=== PATIENT | male | born 1940 | race Caucasian/White ===

== ENCOUNTER 2017-02-14 18:07 | Inpatient (IN) | payer MEDICARE, OTHER ==
[~2017-02-14] VITALS: Ht 182.9 cm; Wt 169.4 kg
[~2017-02-14 18:07] MED LIST changes: -ACET325S PR; -ALUM320SU PO; -AMOCLA500; -AQUAPHOR99 GM TOP; -Acidophilus La100 GM PO; -BISA10S PR; -CEPH250SUA PO; -Diabetic Tussi118 ML PO; -Eucerin Creme454 GM; -Fleet Enema132 ML PR; -HYDHCL25 PO; -Hair, Skin & N1 EACH PO; -INSU100I6 SC; -LACT5TL TOP; -LOPE2C PO; -LOPE2EL PO; -Lisinopril2.5 MG PO; -Milk Of Ma400 MG/5 M PO; -Novolog100 UNIT/2; -Novolog100 UNIT/2 SC; -OXYM.05NI; -PANT40 PO; -POTCHL10ER PO; -SACC250C PO; -TOUJEO SOL300 UNIT/1; -TOUJEO SOL300 UNIT/1 SC; -TRIPLE ANTIBIO1 EACH TOP; -Triamcinolone A15 G2 EXT; -[UNRECOGNIZED DRUG - OTHER] TOP
[2017-02-14] MEDS ORDERED: CEPH500 PO (18:32)
[2017-02-14] MEDS ORDERED: HYDR1TAB94 PO ×2 (18:35)
[2017-02-14] MEDS ORDERED: AMOCLA500 (18:38)
[2017-02-14 19:12] LABS: Albumin, Blood 2.6 g/dL (3.4-5.0); Albumin/Globulin Ratio 0.6 (0.8-1.8); Bilirubin, Total 0.3 mg/dL (0.1-1.0); Bun/Creatinine Ratio 19.9 (12.0-20.0); Calcium, Blood 7.8 mg/dL (8.5-10.1); Creatinine, Blood 5.69 mg/dL (0.60-1.20); Globulin, Blood 4.7 g/dL (2.2-4.0); Potassium, Blood 4.7 mmol/L (3.5-5.5); Total Protein, Blood 7.3 g/dL (6.4-8.2)
[2017-02-14 19:26] LABS: Hematocrit 29.5 % (37.0-53.0); Hemoglobin 9.5 g/dL (13.5-17.5); Mean Corpuscular HGB 31.5 pg (26.0-34.0); Mean Corpuscular HGB Conc 32.2 g/dL (31.5-36.5); Mean Corpuscular Volume 98 fL (80-100); NRBC ABSOLUTE 0.08 K/mm3 (0.00-0.02); NRBC Auto 0.9 /100 WBC (0.0-0.2); RDW Coefficient Variation 18.8 % (11.7-14.2); RDW Standard Deviation 66.3 fL (35.1-46.3); Red Blood Cell Count 3.02 M/mm3 (4.30-5.90); White Blood Cell Count 8.87 K/mm3 (4.00-11.30)
[2017-02-14 19:33] LABS: Platelet Count 31 K/mm3 (150-400)
[2017-02-14 20:18] LABS: BAND PERCENT MAN 17 % (0-8); BASOPHILS ABSOLUTE MAN 0.08 K/mm3 (0.00-0.23); BASOPHILS PERCENT MAN 1 % (0-2); EOSINOPHILS ABSOLUTE MAN 1.15 K/mm3 (0.00-0.68); EOSINOPHILS PERCENT MAN 13 % (0-6); LYMPHOCYTES ABSOLUTE MAN 2.39 K/mm3 (0.84-5.20); LYMPHOCYTES PERCENT MAN 27 % (21-46); METAMYELOCYTE ABSOLUTE MAN 0.26 K/mm3 (0.00-0.00); METAMYELOCYTE PERCENT MAN 3 % (0-0); MONOCYTES ABSOLUTE MAN 0.17 K/mm3 (0.16-1.47); MONOCYTES PERCENT MAN 2 % (4-13); MYELOCYTE ABSOLUTE MAN 0.62 K/mm3 (0.00-0.00); MYELOCYTE PERCENT MAN 7 % (0-0); NEUTROPHILS ABSOLUTE MAN 4.16 K/mm3 (1.96-9.15); SEG NEUTROPHILS PERCENT MAN 30 % (41-73); TOTAL CELLS COUNTED 100
[2017-02-15 00:42] LABS: Adenovirus F 40/41 Not Detected (NOT DETECT); Astrovirus Not Detected (NOT DETECT); Campylobacter Sp Not Detected (NOT DETECT); Cryptosporidium Not Detected (NOT DETECT); Cyclospora Cayetanensis Not Detected (NOT DETECT); E. Coli O157 Not Detected (NOT DETECT); Entamoeba Histolytica Not Detected (NOT DETECT); Enteroaggregative E. coli-EAEC Not Detected (NOT DETECT); Enteropathogenic E. coli-EPEC Not Detected (NOT DETECT); Enterotoxigenic E. coli-ETEC Not Detected (NOT DETECT); Giardia Lamblia Not Detected (NOT DETECT); Plesiomonas Shigelloides Not Detected (NOT DETECT); Rotavirus A Not Detected (NOT DETECT); Salmonella Sp Not Detected (NOT DETECT); Sapovirus Not Detected (NOT DETECT); Shiga Toxin-prod E. coli-STEC Not Detected (NOT DETECT); Shigella/Enteroin E. coli-EIEC Not Detected (NOT DETECT); Vibrio Cholerae Not Detected (NOT DETECT); Vibrio Sp Not Detected (NOT DETECT); Yersinia Enterocolitica Not Detected (NOT DETECT)
[2017-02-15 05:22] LABS: Hemoglobin 9.1 g/dL (13.5-17.5); Mean Corpuscular HGB 31.7 pg (26.0-34.0); Mean Corpuscular HGB Conc 33.7 g/dL (31.5-36.5); Mean Corpuscular Volume 94 fL (80-100); RDW Coefficient Variation 18.8 % (11.7-14.2); RDW Standard Deviation 63.9 fL (35.1-46.3); Red Blood Cell Count 2.87 M/mm3 (4.30-5.90); White Blood Cell Count 9.24 K/mm3 (4.00-11.30)
[2017-02-15 05:24] LABS: Platelet Count 23 K/mm3 (150-400)
[2017-02-15 05:34] LABS: Albumin, Blood 2.5 g/dL (3.4-5.0); Anion Gap 12 mmol/L (6-16); Blood Urea Nitrogen 121 mg/dL (8-24); Bun/Creatinine Ratio 20.5 (12.0-20.0); CO2, Blood 20 mmol/L (21-32); Calcium, Blood 7.2 mg/dL (8.5-10.1); Chloride, Blood 106 mmol/L (98-108); Creatinine, Blood 5.91 mg/dL (0.60-1.20); Glomerular Filtration Rate 10 (60-); Glucose, Blood 148 mg/dL (70-99); Magnesium, Blood 1.8 mg/dL (1.6-2.4); Phosphorus, Blood 7.9 mg/dL (2.5-4.9); Potassium, Blood 4.7 mmol/L (3.5-5.5); Sodium, Blood 138 mmol/L (136-145)
[2017-02-15 05:40] LABS: BAND PERCENT MAN 10 % (0-8); BASOPHILS ABSOLUTE MAN 0.18 K/mm3 (0.00-0.23); BASOPHILS PERCENT MAN 2 % (0-2); EOSINOPHILS PERCENT MAN 13 % (0-6); LYMPHOCYTES ABSOLUTE MAN 2.21 K/mm3 (0.84-5.20); LYMPHOCYTES PERCENT MAN 24 % (21-46); METAMYELOCYTE ABSOLUTE MAN 0.46 K/mm3 (0.00-0.00); METAMYELOCYTE PERCENT MAN 5 % (0-0); MONOCYTES ABSOLUTE MAN 0.46 K/mm3 (0.16-1.47); MONOCYTES PERCENT MAN 5 % (4-13); MYELOCYTE ABSOLUTE MAN 0.46 K/mm3 (0.00-0.00); MYELOCYTE PERCENT MAN 5 % (0-0); NEUTROPHILS ABSOLUTE MAN 4.25 K/mm3 (1.96-9.15); SEG NEUTROPHILS PERCENT MAN 36 % (41-73); TOTAL CELLS COUNTED 100
[2017-02-15 08:34] LABS: International Normalized Ratio 1.09; Platelet Count 29 K/mm3 (150-400); Prothrombin Time Results 11.4 Sec (9.7-11.5)
[2017-02-15 09:58] LABS: Source, Urine Clean Catch
[2017-02-15 10:06] LABS: Bilirubin, Urine Neg (Neg); Blood, Urine Neg (Neg); Glucose Qualitative, Urine Neg (Neg); Ketones, Urine Neg (Neg); Leukocyte Esterase, Urine 2+ (Neg); Nitrite, Urine Neg (Neg); Protein, Urine Neg (Neg); Specific Gravity, Urine 1.025 (1.003-1.022); Urobilinogen, Urine NORM (Normal)
[2017-02-15 10:15] LABS: Appearance, Urine Clear (Clear); Color, Urine Yellow (P-Yellow)
[2017-02-15 10:16] LABS: Bacteria Few /hpf; Red Blood Cells, Urine 0-2 /hpf (0-2); Squamous Epithelial Cells Rare /hpf (Few)
[2017-02-15 10:17] LABS: Calcium Oxalate Crystals Few /hpf; Hyaline Casts 0-2 /lpf (0-2)
[2017-02-15 13:28] LABS: Norovirus GI/GII Detected (NOT DETECT)
[2017-02-15] MEDS ORDERED: AQUAPHOR99 GM TOP (15:39)
[2017-02-15] MEDS ORDERED: Lisinopril2.5 MG PO (15:44)
[2017-02-15] MEDS ORDERED: Acidophilus La100 GM PO (15:46)
[2017-02-15] MEDS ORDERED: ACET325S PR (15:49)
[2017-02-15] MEDS ORDERED: Diabetic Tussi118 ML PO (15:52)
[2017-02-15] MEDS ORDERED: BISA10S PR (15:52)
[2017-02-15] MEDS ORDERED: Fleet Enema132 ML PR (15:53)
[2017-02-15] MEDS ORDERED: LOPE2EL PO (15:57)
[2017-02-15] MEDS ORDERED: Milk Of Ma400 MG/5 M PO (15:58)
[2017-02-15] MEDS ORDERED: INSU100I6 SC (16:03)
[2017-02-15] MEDS ORDERED: TRIPLE ANTIBIO1 EACH TOP (16:08)
[2017-02-15] MEDS ORDERED: TOUJEO SOL300 UNIT/1 SC (16:10)
[2017-02-16 07:43] LABS: Hematocrit 29.8 % (37.0-53.0); Hemoglobin 9.6 g/dL (13.5-17.5); Mean Corpuscular HGB 31.2 pg (26.0-34.0); Mean Corpuscular HGB Conc 32.2 g/dL (31.5-36.5); Mean Corpuscular Volume 97 fL (80-100); NRBC ABSOLUTE 0.03 K/mm3 (0.00-0.02); NRBC Auto 0.3 /100 WBC (0.0-0.2); RDW Coefficient Variation 18.9 % (11.7-14.2); RDW Standard Deviation 65.7 fL (35.1-46.3); Red Blood Cell Count 3.08 M/mm3 (4.30-5.90); White Blood Cell Count 9.47 K/mm3 (4.00-11.30)
[2017-02-16 07:44] LABS: Platelet Count 29 K/mm3 (150-400)
[2017-02-16 08:05] LABS: BAND PERCENT MAN 2 % (0-8); BASOPHILS ABSOLUTE MAN 0.47 K/mm3 (0.00-0.23); BASOPHILS PERCENT MAN 5 % (0-2); EOSINOPHILS ABSOLUTE MAN 1.79 K/mm3 (0.00-0.68); EOSINOPHILS PERCENT MAN 19 % (0-6); LYMPHOCYTES PERCENT MAN 17 % (21-46); METAMYELOCYTE ABSOLUTE MAN 0.28 K/mm3 (0.00-0.00); METAMYELOCYTE PERCENT MAN 3 % (0-0); MONOCYTES ABSOLUTE MAN 0.18 K/mm3 (0.16-1.47); MONOCYTES PERCENT MAN 2 % (4-13); NEUTROPHILS ABSOLUTE MAN 5.01 K/mm3 (1.96-9.15); OTHER CELL PERCENT MAN 1 % (0-0); SEG NEUTROPHILS PERCENT MAN 51 % (41-73); TOTAL CELLS COUNTED 100
[2017-02-16 08:12] LABS: Albumin, Blood 2.8 g/dL (3.4-5.0); Anion Gap 11 mmol/L (6-16); Blood Urea Nitrogen 112 mg/dL (8-24); Bun/Creatinine Ratio 26.3 (12.0-20.0); CO2, Blood 20 mmol/L (21-32); Chloride, Blood 106 mmol/L (98-108); Creatinine, Blood 4.26 mg/dL (0.60-1.20); Glomerular Filtration Rate 15 (60-); Glucose, Blood 366 mg/dL (70-99); Magnesium, Blood 1.8 mg/dL (1.6-2.4); Phosphorus, Blood 6.5 mg/dL (2.5-4.9); Potassium, Blood 5.7 mmol/L (3.5-5.5); Sodium, Blood 137 mmol/L (136-145)
[2017-02-16 18:59] LABS: Bun/Creatinine Ratio 30.6 (12.0-20.0); Calcium, Blood 8.1 mg/dL (8.5-10.1); Creatinine, Blood 3.27 mg/dL (0.60-1.20); Potassium, Blood 4.6 mmol/L (3.5-5.5)
[2017-02-17 06:02] LABS: BASOPHILS ABSOLUTE AUTO 0.15 K/mm3 (0.00-0.23); BASOPHILS PERCENT AUTO 2 % (0-2); EOSINOPHILS ABSOLUTE AUTO 0.71 K/mm3 (0.00-0.68); EOSINOPHILS PERCENT AUTO 10 % (0-6); Hematocrit 26.8 % (37.0-53.0); Hemoglobin 8.6 g/dL (13.5-17.5); IMMATURE GRAN ABSOLUTE AUTO 1.52 K/mm3 (0.00-0.10); IMMATURE GRAN PERCENT AUTO 22 % (0-1); LYMPHOCYTES ABSOLUTE AUTO 1.98 K/mm3 (0.84-5.20); LYMPHOCYTES PERCENT AUTO 29 % (21-46); MONOCYTES ABSOLUTE AUTO 0.63 K/mm3 (0.16-1.47); MONOCYTES PERCENT AUTO 9 % (4-13); Mean Corpuscular HGB 30.9 pg (26.0-34.0); Mean Corpuscular HGB Conc 32.1 g/dL (31.5-36.5); Mean Corpuscular Volume 96 fL (80-100); NEUTROPHILS ABSOLUTE AUTO 1.91 K/mm3 (1.96-9.15); NEUTROPHILS PERCENT AUTO 28 % (41-73); NRBC ABSOLUTE 0.04 K/mm3 (0.00-0.02); NRBC Auto 0.5 /100 WBC (0.0-0.2); RDW Coefficient Variation 18.6 % (11.7-14.2); RDW Standard Deviation 64.5 fL (35.1-46.3); Red Blood Cell Count 2.78 M/mm3 (4.30-5.90)
[2017-02-17 06:04] LABS: Albumin, Blood 2.7 g/dL (3.4-5.0); Anion Gap 9 mmol/L (6-16); Blood Urea Nitrogen 95 mg/dL (8-24); Bun/Creatinine Ratio 37.5 (12.0-20.0); CO2, Blood 24 mmol/L (21-32); Calcium, Blood 7.8 mg/dL (8.5-10.1); Chloride, Blood 110 mmol/L (98-108); Creatinine, Blood 2.53 mg/dL (0.60-1.20); Glomerular Filtration Rate 27 (60-); Glucose, Blood 330 mg/dL (70-99); Potassium, Blood 4.3 mmol/L (3.5-5.5); Sodium, Blood 143 mmol/L (136-145)
[2017-02-17 06:05] LABS: Platelet Count 24 K/mm3 (150-400)
[2017-02-17 06:24] LABS: BAND PERCENT MAN 7 % (0-8); BASOPHILS ABSOLUTE MAN 0.13 K/mm3 (0.00-0.23); BASOPHILS PERCENT MAN 2 % (0-2); EOSINOPHILS PERCENT MAN 16 % (0-6); LYMPHOCYTES % ATYPICAL MANUAL 1 % (0-0); LYMPHOCYTES ABSOLUTE MAN 1.79 K/mm3 (0.84-5.20); LYMPHOCYTES PERCENT MAN 25 % (21-46); METAMYELOCYTE ABSOLUTE MAN 0.34 K/mm3 (0.00-0.00); METAMYELOCYTE PERCENT MAN 5 % (0-0); MONOCYTES ABSOLUTE MAN 0.13 K/mm3 (0.16-1.47); MONOCYTES PERCENT MAN 2 % (4-13); MYELOCYTE ABSOLUTE MAN 0.34 K/mm3 (0.00-0.00); MYELOCYTE PERCENT MAN 5 % (0-0); NEUTROPHILS ABSOLUTE MAN 3.03 K/mm3 (1.96-9.15); SEG NEUTROPHILS PERCENT MAN 37 % (41-73); TOTAL CELLS COUNTED 100
[2017-02-17 06:56] LABS: Phosphorus, Blood 3.5 mg/dL (2.5-4.9)
[2017-02-18 06:18] LABS: Hematocrit 28.2 % (37.0-53.0); Hemoglobin 9.1 g/dL (13.5-17.5); Mean Corpuscular HGB 31.4 pg (26.0-34.0); Mean Corpuscular HGB Conc 32.3 g/dL (31.5-36.5); Mean Corpuscular Volume 97 fL (80-100); NRBC ABSOLUTE 0.03 K/mm3 (0.00-0.02); NRBC Auto 0.4 /100 WBC (0.0-0.2); RDW Coefficient Variation 18.7 % (11.7-14.2); RDW Standard Deviation 65.3 fL (35.1-46.3); White Blood Cell Count 6.98 K/mm3 (4.00-11.30)
[2017-02-18 06:20] LABS: Platelet Count 26 K/mm3 (150-400)
[2017-02-18 06:26] LABS: Albumin, Blood 2.9 g/dL (3.4-5.0); Anion Gap 10 mmol/L (6-16); Blood Urea Nitrogen 69 mg/dL (8-24); Bun/Creatinine Ratio 42.1 (12.0-20.0); CO2, Blood 26 mmol/L (21-32); Calcium, Blood 8.4 mg/dL (8.5-10.1); Chloride, Blood 108 mmol/L (98-108); Creatinine, Blood 1.64 mg/dL (0.60-1.20); Glomerular Filtration Rate 44 (60-); Glucose, Blood 330 mg/dL (70-99); Phosphorus, Blood 2.6 mg/dL (2.5-4.9); Potassium, Blood 4.5 mmol/L (3.5-5.5); Sodium, Blood 144 mmol/L (136-145)
[2017-02-18 06:44] LABS: BAND PERCENT MAN 6 % (0-8); BASOPHILS PERCENT MAN 0 % (0-2); EOSINOPHILS ABSOLUTE MAN 0.55 K/mm3 (0.00-0.68); EOSINOPHILS PERCENT MAN 8 % (0-6); LYMPHOCYTES % ATYPICAL MANUAL 3 % (0-0); LYMPHOCYTES ABSOLUTE MAN 3.83 K/mm3 (0.84-5.20); LYMPHOCYTES PERCENT MAN 52 % (21-46); METAMYELOCYTE ABSOLUTE MAN 0.06 K/mm3 (0.00-0.00); METAMYELOCYTE PERCENT MAN 1 % (0-0); MONOCYTES ABSOLUTE MAN 0.34 K/mm3 (0.16-1.47); MONOCYTES PERCENT MAN 5 % (4-13); MYELOCYTE ABSOLUTE MAN 0.06 K/mm3 (0.00-0.00); MYELOCYTE PERCENT MAN 1 % (0-0); NEUTROPHILS ABSOLUTE MAN 2.09 K/mm3 (1.96-9.15); SEG NEUTROPHILS PERCENT MAN 24 % (41-73); TOTAL CELLS COUNTED 100
[2017-02-19 05:51] LABS: Hematocrit 25.7 % (37.0-53.0); Hemoglobin 8.3 g/dL (13.5-17.5); Mean Corpuscular HGB 31.3 pg (26.0-34.0); Mean Corpuscular HGB Conc 32.3 g/dL (31.5-36.5); Mean Corpuscular Volume 97 fL (80-100); NRBC ABSOLUTE 0.04 K/mm3 (0.00-0.02); NRBC Auto 0.7 /100 WBC (0.0-0.2); RDW Coefficient Variation 18.7 % (11.7-14.2); RDW Standard Deviation 65.1 fL (35.1-46.3); Red Blood Cell Count 2.65 M/mm3 (4.30-5.90); White Blood Cell Count 6.62 K/mm3 (4.00-11.30)
[2017-02-19 05:58] LABS: Platelet Count 24 K/mm3 (150-400)
[2017-02-19 06:15] LABS: Albumin, Blood 2.6 g/dL (3.4-5.0); Anion Gap 6 mmol/L (6-16); Blood Urea Nitrogen 49 mg/dL (8-24); Bun/Creatinine Ratio 36.6 (12.0-20.0); CO2, Blood 28 mmol/L (21-32); Calcium, Blood 8.2 mg/dL (8.5-10.1); Chloride, Blood 111 mmol/L (98-108); Creatinine, Blood 1.34 mg/dL (0.60-1.20); Glomerular Filtration Rate 55 (60-); Glucose, Blood 293 mg/dL (70-99); Phosphorus, Blood 2.3 mg/dL (2.5-4.9); Potassium, Blood 4.4 mmol/L (3.5-5.5); Sodium, Blood 145 mmol/L (136-145)
[2017-02-19 06:23] LABS: BAND PERCENT MAN 9 % (0-8); BASOPHILS ABSOLUTE MAN 0.13 K/mm3 (0.00-0.23); BASOPHILS PERCENT MAN 2 % (0-2); EOSINOPHILS ABSOLUTE MAN 0.86 K/mm3 (0.00-0.68); EOSINOPHILS PERCENT MAN 13 % (0-6); LYMPHOCYTES % ATYPICAL MANUAL 1 % (0-0); LYMPHOCYTES ABSOLUTE MAN 2.91 K/mm3 (0.84-5.20); LYMPHOCYTES PERCENT MAN 43 % (21-46); METAMYELOCYTE ABSOLUTE MAN 0.33 K/mm3 (0.00-0.00); METAMYELOCYTE PERCENT MAN 5 % (0-0); MONOCYTES ABSOLUTE MAN 0.26 K/mm3 (0.16-1.47); MONOCYTES PERCENT MAN 4 % (4-13); MYELOCYTE ABSOLUTE MAN 0.13 K/mm3 (0.00-0.00); MYELOCYTE PERCENT MAN 2 % (0-0); NEUTROPHILS ABSOLUTE MAN 1.98 K/mm3 (1.96-9.15); SEG NEUTROPHILS PERCENT MAN 21 % (41-73); TOTAL CELLS COUNTED 100
[2017-02-19] MEDS ORDERED: SACC250C PO (12:25)
[2017-02-19] MEDS ORDERED: CEPH250SUA PO (12:27)
== END 2017-02-19 14:49 | DRG 682 ==
LOC: ER 18:07 → MEDS 20:18 → ENPENDDIS 02-19 11:00 → MEDS 02-19 14:49
PROVIDERS: Family Medicine; Internal Medicine Nephrology; Physician Assistant
DX: N17.9 Acute kidney failure, unspecified (principal); G92 Toxic encephalopathy; E11.22 Type 2 diabetes mellitus with diabetic chronic kidney disease; D69.6 Thrombocytopenia, unspecified; E66.01 Morbid (severe) obesity due to excess calories; A08.11 Acute gastroenteropathy due to Norwalk agent; N39.0 Urinary tract infection, site not specified; I13.0 Hypertensive heart and chronic kidney disease with heart failure and stage 1 through stage 4 chronic kidney disease, or unspecified chronic kidney disease; E87.5 Hyperkalemia; G62.9 Polyneuropathy, unspecified; D64.9 Anemia, unspecified; I13.10 Hypertensive heart and chronic kidney disease without heart failure, with stage 1 through stage 4 chronic kidney disease, or unspecified chronic kidney disease; N18.3 Chronic kidney disease, stage 3 (moderate); R04.0 Epistaxis; J44.9 Chronic obstructive pulmonary disease, unspecified; K21.9 Gastro-esophageal reflux disease without esophagitis; Z99.81 Dependence on supplemental oxygen; Z68.43 Body mass index [BMI] 50.0-59.9, adult; Z79.4 Long term (current) use of insulin
CPT/HCPCS: 36415; 71020; 76770; 80048; 80053; 80069; 81001; 82530; 82533; 82947; 83690; 83735; 85025; 85049; 85610; 87077; 87086; 87186; 87507; 93005; 93010; 94660; 94762; 99285; C1751; J0696; J0881; J1720; J1815; J7030; J7040; J7060; Q0163

== ENCOUNTER → 2017-02-14 | Outpatient (CLI) | payer MEDICARE, OTHER ==
[~2017-02-14] MED LIST: ACET325 PO; ACET325S PR; ALBU90OI INH; ALBUTEROL; ALFU10; ALFU10 PO; ALLO100 PO; ALLO300 PO; ALPR.5 PO; ALPR.5CR; ALUM320SU PO; AMLO10 PO; AMOCLA500; AQUAPHOR99 GM TOP; ASCO500 PO; ATEN25; ATEN50 PO; Acidophilus La100 GM PO; Actos30 MG PO; Avodart0.5 MG PO; BACITO TOP; BENADRYL PO; BISA10S PR; BUME2; BUME2 PO; BUPR100; CEPH250SUA PO; CEPH500 PO; CLON.1 PO; CLON.2 PO; CYAN1000 PO; CYCL10 PO; DOCU100 PO; DOXY100 PO; DUTA.5 PO; Diabetic Tussi118 ML PO; ESCI10 PO; ESCI20 PO; EUCERIN DAILY400 ML TOP; EXEN5PENI SC; Eucerin Creme454 GM; FLUSAL2505 INH; FURO40; FURO40 PO; Fleet Enema132 ML PR; Fruity C250 MG PO; GABA100 PO; GABA300 PO; GABA600 PO; GLIP10 PO; GLIP5 PO; HYDHCL25 PO; HYDMOR2 PO; HYDMOR4 PO; HYDR1TAB94 PO; Hair, Skin & N1 EACH PO; Humulin N100 UNIT/1 SQ; INS70/30I; INS70/30I SC; INS70/30PN; INS70/30PN SC; INSDET100 SC; INSDET100 SQ; INSLIS75I SC; INSR10I SC; INSU100I6 SC; INSUASPI; INSULANI; KLOR CON PO; Kenalog60 ML TOP; LACT5TL TOP; LAVAP17G PO; LEVO750 PO; LISI10; LISI20 PO; LISI5 PO; LOPE2C PO; LOPE2EL PO; LOPERAMIDE PO; LORA2 PO; LOSA25 PO; LOSA50 PO; Lisinopril2.5 MG PO; METF500; METF500 PO; METF500C PO; METO2.5 PO; Milk Of Ma400 MG/5 M PO; Multivitamin1 EAC2 PO; NIAC500 PO; NIAC500ER; Nephro-Vite RX1 EA PO; Norco 5-325 Ta1 EACH PO; Novolin R100 UNIT/M SC; Novolog Fl100 UNIT/1 SC; Novolog100 UNIT/2; Novolog100 UNIT/2 SC; Nystop60 GM TOP; OMEP20ER PO; OMEPRAZOLE MAGN20 MG PO; ONDA4 PO; ONDA4ODT PO; OXYC5 PO; OXYM.05NI; PANT40 PO; PIOG15; PIOG30 PO; POTA10T; POTA10T PO; POTCHL10ER; POTCHL10ER PO; POTCHL20ER PO; PROBIOTIC1 EAC1 PO; PROBIOTICS PO; Pain Relief500 MG PO; Pedi-Dri 100,0060 GM TOP; Prednisone20 MG PO; RABE20; RABE20 PO; REGULAR INSULIN; RENAL VITAMIN0.8 MG PO; SACC250C PO; SKIN TREATMENT225 GM TOP; SPIR25 PO; SYMLIN; Stool Softener100 MG PO; TAMS.4ER PO; TOCO1000 PO; TOCO400 PO; TOUJEO SOL300 UNIT/1; TOUJEO SOL300 UNIT/1 SC; TRIPLE ANTIBIO1 EACH TOP; Triamcinolone A15 G2 EXT; Valium5 MG PO; Vitamin C500 M3 PO; Voltaren100 GM TP; Zofran Odt4 MG PO; [UNRECOGNIZED DRUG - OTHER] TOP
== END | disposition home or self-care (01) ==
LOC: LAB UVN 13:02
PROVIDERS: Family Medicine
DX: A08.11 Acute gastroenteropathy due to Norwalk agent (principal)
CPT/HCPCS: 87798

== ENCOUNTER 2017-02-24 00:25 | Day surgery (SDC) | payer MEDICARE, OTHER ==
[~2017-02-24 00:25] MED LIST changes: +ACET325S PR; +AMOCLA500; +AQUAPHOR99 GM TOP; +Acidophilus La100 GM PO; +BISA10S PR; +CEPH250SUA PO; +Diabetic Tussi118 ML PO; +Fleet Enema132 ML PR; +INSU100I6 SC; +LOPE2EL PO; +Lisinopril2.5 MG PO; +Milk Of Ma400 MG/5 M PO; +SACC250C PO; +TOUJEO SOL300 UNIT/1 SC; +TRIPLE ANTIBIO1 EACH TOP
== END 2017-02-24 23:18 | disposition home or self-care (01) ==
LOC: WOUND 00:25
DX: Z48.00 Encounter for change or removal of nonsurgical wound dressing (principal); E11.59 Type 2 diabetes mellitus with other circulatory complications; L03.119 Cellulitis of unspecified part of limb; I50.30 Unspecified diastolic (congestive) heart failure; I73.9 Peripheral vascular disease, unspecified; I70.209 Unspecified atherosclerosis of native arteries of extremities, unspecified extremity; L89.893 Pressure ulcer of other site, stage 3; L02.211 Cutaneous abscess of abdominal wall; I89.0 Lymphedema, not elsewhere classified
CPT/HCPCS: G0463

== ENCOUNTER 2017-03-03 09:20 | Day surgery (SDC) | payer MEDICARE, OTHER | END 2017-03-03 11:11 | disposition home or self-care (01) | LOC: WOUND 09:20 | PROC: 0HBMXZZ Excision of Right Foot Skin, External Approach (ICD-10-PCS; principal; 2017-03-03) | DX: Z48.00 Encounter for change or removal of nonsurgical wound dressing (principal); E11.59 Type 2 diabetes mellitus with other circulatory complications; L03.119 Cellulitis of unspecified part of limb; I50.30 Unspecified diastolic (congestive) heart failure; I73.9 Peripheral vascular disease, unspecified; I70.209 Unspecified atherosclerosis of native arteries of extremities, unspecified extremity; L89.893 Pressure ulcer of other site, stage 3; L02.211 Cutaneous abscess of abdominal wall | CPT/HCPCS: G0463 ==

== ENCOUNTER 2017-03-08 09:04 | Observation (INO) | payer MEDICARE, OTHER ==
[~2017-03-08] VITALS: Ht 182.9 cm; Wt 172.4 kg
[2017-03-08 09:47] LABS: Source, Urine Clean Catch
[2017-03-08 09:50] LABS: Bilirubin, Urine Neg (Neg); Blood, Urine Neg (Neg); Glucose Qualitative, Urine Neg (Neg); Ketones, Urine Neg (Neg); Leukocyte Esterase, Urine 2+ (Neg); Nitrite, Urine Neg (Neg); Protein, Urine Neg (Neg); Specific Gravity, Urine 1.015 (1.003-1.022); Urobilinogen, Urine 1+ (Normal)
[2017-03-08 10:18] LABS: Hematocrit 21.2 % (37.0-53.0); Hemoglobin 6.8 g/dL (13.5-17.5); Mean Corpuscular HGB 31.3 pg (26.0-34.0); Mean Corpuscular HGB Conc 32.1 g/dL (31.5-36.5); Mean Corpuscular Volume 98 fL (80-100); NRBC ABSOLUTE 0.06 K/mm3 (0.00-0.02); NRBC Auto 0.6 /100 WBC (0.0-0.2); RDW Coefficient Variation 19.9 % (11.7-14.2); RDW Standard Deviation 70.4 fL (35.1-46.3); Red Blood Cell Count 2.17 M/mm3 (4.30-5.90); White Blood Cell Count 9.67 K/mm3 (4.00-11.30)
[2017-03-08 10:23] LABS: Platelet Count 20 K/mm3 (150-400)
[2017-03-08 10:28] LABS: Albumin, Blood 2.2 g/dL (3.4-5.0); Albumin/Globulin Ratio 0.4 (0.8-1.8); Bilirubin, Total 0.9 mg/dL (0.1-1.0); Bun/Creatinine Ratio 41.8 (12.0-20.0); Calcium, Blood 8.2 mg/dL (8.5-10.1); Creatinine, Blood 1.7 mg/dL (0.60-1.20); Globulin, Blood 5.3 g/dL (2.2-4.0); Potassium, Blood 3.9 mmol/L (3.5-5.5); Total Protein, Blood 7.5 g/dL (6.4-8.2)
[2017-03-08 10:42] LABS: BAND PERCENT MAN 8 % (0-8); BASOPHILS ABSOLUTE MAN 0.38 K/mm3 (0.00-0.23); BASOPHILS PERCENT MAN 4 % (0-2); EOSINOPHILS ABSOLUTE MAN 1.64 K/mm3 (0.00-0.68); EOSINOPHILS PERCENT MAN 17 % (0-6); LYMPHOCYTES ABSOLUTE MAN 2.99 K/mm3 (0.84-5.20); LYMPHOCYTES PERCENT MAN 31 % (21-46); METAMYELOCYTE ABSOLUTE MAN 0.77 K/mm3 (0.00-0.00); METAMYELOCYTE PERCENT MAN 8 % (0-0); MONOCYTES PERCENT MAN 0 % (4-13); MYELOCYTE ABSOLUTE MAN 0.67 K/mm3 (0.00-0.00); MYELOCYTE PERCENT MAN 7 % (0-0); NEUTROPHILS ABSOLUTE MAN 3.19 K/mm3 (1.96-9.15); SEG NEUTROPHILS PERCENT MAN 25 % (41-73); TOTAL CELLS COUNTED 100
[2017-03-08 10:52] LABS: Appearance, Urine Clear (Clear); Color, Urine Yellow (P-Yellow)
[2017-03-08 10:54] LABS: Bacteria Few /hpf; Red Blood Cells, Urine 0-2 /hpf (0-2); Squamous Epithelial Cells Few /hpf (Few)
== END 2017-03-08 21:22 | disposition home or self-care (01) ==
LOC: ER 09:04 → MEDS 11:00 → ER 14:24 → MEDS 14:29 → ER 14:36 → MEDS 21:22
PROVIDERS: Physician Assistant
DX: D64.9 Anemia, unspecified (principal); D69.6 Thrombocytopenia, unspecified; E11.9 Type 2 diabetes mellitus without complications; K21.9 Gastro-esophageal reflux disease without esophagitis; N40.0 Benign prostatic hyperplasia without lower urinary tract symptoms; J44.9 Chronic obstructive pulmonary disease, unspecified; E66.01 Morbid (severe) obesity due to excess calories; Z79.899 Other long term (current) drug therapy; Z88.0 Allergy status to penicillin; Z87.891 Personal history of nicotine dependence
CPT/HCPCS: 36415; 36430; 71046; 80053; 81001; 82272; 82947; 85025; 86850; 86900; 86901; 86923; 87086; 93005; 93010; 99285; G0378; J7030; P9016; Q2038

== ENCOUNTER 2017-03-10 09:20 | Day surgery (SDC) | payer MEDICARE, OTHER | END 2017-03-10 11:01 | disposition home or self-care (01) | LOC: WOUND 09:20 | DX: Z48.00 Encounter for change or removal of nonsurgical wound dressing (principal); E11.59 Type 2 diabetes mellitus with other circulatory complications; I50.30 Unspecified diastolic (congestive) heart failure; L03.119 Cellulitis of unspecified part of limb; I73.9 Peripheral vascular disease, unspecified; I70.309 Unspecified atherosclerosis of unspecified type of bypass graft(s) of the extremities, unspecified extremity; L89.893 Pressure ulcer of other site, stage 3; L02.211 Cutaneous abscess of abdominal wall | CPT/HCPCS: 36415; 83036; 85027; G0463 ==

== ENCOUNTER 2017-03-13 18:30 | Emergency (ER) | payer MEDICARE, OTHER ==
[~2017-03-13] VITALS: Ht 182.9 cm; Wt 173.7 kg
[2017-03-13] MEDS ORDERED: [UNRECOGNIZED DRUG - OTHER] TOP (19:08)
[2017-03-13 19:09] LABS: Hematocrit 26.6 % (37.0-53.0); Hemoglobin 8.5 g/dL (13.5-17.5); Mean Corpuscular HGB 30.6 pg (26.0-34.0); Mean Corpuscular Volume 96 fL (80-100); NRBC ABSOLUTE 0.09 K/mm3 (0.00-0.02); NRBC Auto 0.8 /100 WBC (0.0-0.2); RDW Coefficient Variation 19.9 % (11.7-14.2); RDW Standard Deviation 68.9 fL (35.1-46.3); Red Blood Cell Count 2.78 M/mm3 (4.30-5.90); White Blood Cell Count 10.64 K/mm3 (4.00-11.30)
[2017-03-13] MEDS ORDERED: BUME2 PO (19:09)
[2017-03-13] MEDS ORDERED: POTCHL10ER PO (19:12)
[2017-03-13] MEDS ORDERED: PANT40 PO (19:13)
[2017-03-13 19:18] LABS: Platelet Count 26 K/mm3 (150-400)
[2017-03-13 19:23] LABS: Calcium, Blood 8.6 mg/dL (8.5-10.1); Creatinine, Blood 1.56 mg/dL (0.60-1.20); Potassium, Blood 3.6 mmol/L (3.5-5.5)
[2017-03-13 19:54] LABS: PCO2 Arterial 48.8 mmHg (35-45); PO2 Arterial 81.6 mmHg (80-100)
== END 2017-03-13 20:17 | disposition home or self-care (01) ==
LOC: ER 18:30
PROVIDERS: Emergency Medicine
DX: D47.3 Essential (hemorrhagic) thrombocythemia (principal); N18.9 Chronic kidney disease, unspecified; D63.1 Anemia in chronic kidney disease; E87.70 Fluid overload, unspecified; J44.9 Chronic obstructive pulmonary disease, unspecified; I48.91 Unspecified atrial fibrillation; E66.01 Morbid (severe) obesity due to excess calories; Z90.49 Acquired absence of other specified parts of digestive tract
CPT/HCPCS: 36600; 71045; 80048; 82803; 85027; 99283

== ENCOUNTER 2017-03-15 07:12 | Emergency (ER) | payer MEDICARE, OTHER ==
[~2017-03-15] VITALS: Ht 182.9 cm; Wt 175.1 kg
[~2017-03-15 07:12] MED LIST changes: +PANT40 PO; +POTCHL10ER PO; +[UNRECOGNIZED DRUG - OTHER] TOP
[2017-03-15 08:20] LABS: Hematocrit 25.2 % (37.0-53.0); Hemoglobin 8.1 g/dL (13.5-17.5); Mean Corpuscular HGB 30.7 pg (26.0-34.0); Mean Corpuscular HGB Conc 32.1 g/dL (31.5-36.5); Mean Corpuscular Volume 96 fL (80-100); NRBC ABSOLUTE 0.13 K/mm3 (0.00-0.02); NRBC Auto 1.2 /100 WBC (0.0-0.2); RDW Coefficient Variation 19.9 % (11.7-14.2); RDW Standard Deviation 68.6 fL (35.1-46.3); Red Blood Cell Count 2.64 M/mm3 (4.30-5.90); White Blood Cell Count 10.79 K/mm3 (4.00-11.30)
[2017-03-15 08:29] LABS: Platelet Count 21 K/mm3 (150-400)
[2017-03-15 08:35] LABS: Albumin, Blood 2.2 g/dL (3.4-5.0); Albumin/Globulin Ratio 0.4 (0.8-1.8); Bilirubin, Total 1.2 mg/dL (0.1-1.0); Bun/Creatinine Ratio 49.4 (12.0-20.0); Calcium, Blood 8.5 mg/dL (8.5-10.1); Creatinine, Blood 1.78 mg/dL (0.60-1.20); Globulin, Blood 6.2 g/dL (2.2-4.0); Potassium, Blood 4.1 mmol/L (3.5-5.5); Total Protein, Blood 8.4 g/dL (6.4-8.2)
[2017-03-15] MEDS ORDERED: TOUJEO SOL300 UNIT/1 (08:46)
[2017-03-15] MEDS ORDERED: BUME2 PO (09:22)
[2017-03-15] MEDS ORDERED: TAMS.4ER PO (09:22)
[2017-03-15] MEDS ORDERED: OXYM.05NI (09:22)
[2017-03-15] MEDS ORDERED: PROBIOTIC1 EAC1 PO (09:23)
[2017-03-15] MEDS ORDERED: ALUM320SU PO (09:23)
[2017-03-15] MEDS ORDERED: LOPE2C PO (09:24)
[2017-03-15] MEDS ORDERED: ONDA4 PO (09:24)
[2017-03-15] MEDS ORDERED: HYDR1TAB94 PO (09:24)
[2017-03-15] MEDS ORDERED: EXEN5PENI SC (09:25)
[2017-03-15] MEDS ORDERED: LACT5TL TOP (09:25)
[2017-03-15] MEDS ORDERED: Eucerin Creme454 GM (09:25)
[2017-03-15] MEDS ORDERED: Triamcinolone A15 G2 EXT (09:27)
[2017-03-15 09:28] LABS: BAND PERCENT MAN 6 % (0-8); BASOPHILS ABSOLUTE MAN 0.43 K/mm3 (0.00-0.23); BASOPHILS PERCENT MAN 4 % (0-2); EOSINOPHILS ABSOLUTE MAN 2.69 K/mm3 (0.00-0.68); EOSINOPHILS PERCENT MAN 25 % (0-6); LYMPHOCYTES % ATYPICAL MANUAL 1 % (0-0); LYMPHOCYTES ABSOLUTE MAN 2.58 K/mm3 (0.84-5.20); LYMPHOCYTES PERCENT MAN 23 % (21-46); METAMYELOCYTE ABSOLUTE MAN 0.32 K/mm3 (0.00-0.00); METAMYELOCYTE PERCENT MAN 3 % (0-0); MONOCYTES PERCENT MAN 0 % (4-13); MYELOCYTE ABSOLUTE MAN 0.43 K/mm3 (0.00-0.00); MYELOCYTE PERCENT MAN 4 % (0-0); NEUTROPHILS ABSOLUTE MAN 3.99 K/mm3 (1.96-9.15); SEG NEUTROPHILS PERCENT MAN 31 % (41-73); TOTAL CELLS COUNTED 100
[2017-03-15] MEDS ORDERED: Novolog100 UNIT/2 SC (09:28)
[2017-03-15] MEDS ORDERED: Novolog100 UNIT/2 (09:29)
[2017-03-15 09:35] LABS: PCO2 Arterial 39.7 mmHg (35-45); PO2 Arterial 63.8 mmHg (80-100); pH Blood Arterial 7.53 (7.35-7.45)
[2017-03-15 09:36] LABS: OTHER CELL PERCENT MAN 3 % (0-0)
[2017-03-16] MEDS ORDERED: [UNRECOGNIZED DRUG - OTHER] TOP (12:40)
[2017-03-16] MEDS ORDERED: CEPH250SUA PO (12:46)
[2017-03-16] MEDS ORDERED: HYDHCL25 PO (12:48)
== END 2017-03-15 11:48 | disposition home or self-care (01) ==
LOC: ER 07:12
PROVIDERS: Psychiatry & Neurology Psychiatry
DX: R04.0 Epistaxis (principal); I48.91 Unspecified atrial fibrillation; E11.40 Type 2 diabetes mellitus with diabetic neuropathy, unspecified; J44.9 Chronic obstructive pulmonary disease, unspecified; E11.22 Type 2 diabetes mellitus with diabetic chronic kidney disease; N18.9 Chronic kidney disease, unspecified; D63.1 Anemia in chronic kidney disease; E66.9 Obesity, unspecified; Z68.43 Body mass index [BMI] 50.0-59.9, adult; Z88.0 Allergy status to penicillin; Z79.899 Other long term (current) drug therapy; Z79.4 Long term (current) use of insulin; D69.6 Thrombocytopenia, unspecified; Z98.890 Other specified postprocedural states; Z87.891 Personal history of nicotine dependence
CPT/HCPCS: 30905; 36415; 36430; 36600; 51701; 70450; 80053; 81000; 82803; 83605; 83880; 85025; 86900; 86901; 87040; 93005; 93010; 96374; 99284; 99285; J2405; J7030; P9035

== ENCOUNTER 2017-03-16 07:45 | Day surgery (SDC) | payer MEDICARE, OTHER ==
[~2017-03-16 07:45] MED LIST changes: +ALUM320SU PO; +Eucerin Creme454 GM; +LACT5TL TOP; +LOPE2C PO; +Novolog100 UNIT/2; +Novolog100 UNIT/2 SC; +OXYM.05NI; +TOUJEO SOL300 UNIT/1; +Triamcinolone A15 G2 EXT
[2017-03-16] MEDS ORDERED: [UNRECOGNIZED DRUG - OTHER] TOP (12:40)
[2017-03-16] MEDS ORDERED: CEPH250SUA PO (12:46)
[2017-03-16] MEDS ORDERED: HYDHCL25 PO (12:48)
== END 2017-03-16 12:05 | disposition home or self-care (01) ==
LOC: ATC 07:45
PROC: 30233N1 Transfusion of Nonautologous Red Blood Cells into Peripheral Vein, Percutaneous Approach (ICD-10-PCS; principal; 2017-03-16)
DX: N18.9 Chronic kidney disease, unspecified (principal); D63.1 Anemia in chronic kidney disease; D69.59 Other secondary thrombocytopenia
CPT/HCPCS: 36430; 86850; 86900; 86901; 86923; J7030; P9016

== ENCOUNTER 2017-03-17 09:20 | Day surgery (SDC) | payer MEDICARE, OTHER ==
[~2017-03-17 09:20] MED LIST changes: +HYDHCL25 PO
== END 2017-03-17 11:42 | disposition home or self-care (01) ==
LOC: WOUND 09:20
DX: Z48.00 Encounter for change or removal of nonsurgical wound dressing (principal); E11.59 Type 2 diabetes mellitus with other circulatory complications; L03.119 Cellulitis of unspecified part of limb; I50.30 Unspecified diastolic (congestive) heart failure; I73.9 Peripheral vascular disease, unspecified; I70.209 Unspecified atherosclerosis of native arteries of extremities, unspecified extremity; L89.893 Pressure ulcer of other site, stage 3; L02.211 Cutaneous abscess of abdominal wall
CPT/HCPCS: G0463

== ENCOUNTER 2017-03-21 17:20 | Inpatient (IN) | payer MEDICARE, OTHER ==
[~2017-03-21] VITALS: Ht 182.9 cm; Wt 151.1 kg
[2017-03-21 17:35] LABS: PCO2 Arterial 50.9 mmHg (35-45); PO2 Arterial 196 mmHg (80-100); pH Blood Arterial 7.46 (7.35-7.45)
[2017-03-21 17:49] LABS: Hematocrit 22.8 % (37.0-53.0); Hemoglobin 7.1 g/dL (13.5-17.5); Mean Corpuscular HGB 30.6 pg (26.0-34.0); Mean Corpuscular HGB Conc 31.1 g/dL (31.5-36.5); Mean Corpuscular Volume 98 fL (80-100); NRBC ABSOLUTE 0.05 K/mm3 (0.00-0.02); NRBC Auto 0.5 /100 WBC (0.0-0.2); RDW Coefficient Variation 19.6 % (11.7-14.2); RDW Standard Deviation 68.3 fL (35.1-46.3); Red Blood Cell Count 2.32 M/mm3 (4.30-5.90); White Blood Cell Count 9.69 K/mm3 (4.00-11.30)
[2017-03-21 17:50] LABS: Calcium, Ionized (POC) 1.05 mmol/L (1.10-1.46); Chloride (POC) 93 mmol/L (98-108); Glucose (ISTAT POC) 156 mg/dL (70-99); Hemoglobin (POC) 6.5 g/dL (13.5-17.5); Potassium (POC) 4.2 mmol/L (3.5-5.5); Sodium (POC) 141 mmol/L (135-148); Total CO2 (POC) 37 mmol/L (21-32)
[2017-03-21 18:09] LABS: Alanine Aminotransfer (ALT/SGP 16 U/L (12-78); Albumin/Globulin Ratio 0.3 (0.8-1.8); Alk Phos 77 U/L (50-136); Anion Gap 7 mmol/L (6-16); Aspartate Aminotrans (AST/SGOT 28 U/L (12-37); Bilirubin, Total 0.7 mg/dL (0.1-1.0); Blood Urea Nitrogen 84 mg/dL (8-24); Bun/Creatinine Ratio 46.9 (12.0-20.0); CO2, Blood 35 mmol/L (21-32); Calcium, Blood 8.8 mg/dL (8.5-10.1); Chloride, Blood 97 mmol/L (98-108); Creatinine, Blood 1.79 mg/dL (0.60-1.20); Globulin, Blood 6.2 g/dL (2.2-4.0); Glomerular Filtration Rate 40 (60-); Glucose, Blood 151 mg/dL (70-99); Magnesium, Blood 1.9 mg/dL (1.6-2.4); Potassium, Blood 4.1 mmol/L (3.5-5.5); Sodium, Blood 139 mmol/L (136-145); Total Protein, Blood 8.2 g/dL (6.4-8.2); Troponin I <0.015 ng/mL (0.000-0.040)
[2017-03-21 18:13] LABS: IMMATURE GRAN ABSOLUTE AUTO 1.75 K/mm3 (0.00-0.10); IMMATURE GRAN PERCENT AUTO 18 % (0-1)
[2017-03-21 18:16] LABS: Platelet Count 26 K/mm3 (150-400)
[2017-03-21 18:22] LABS: BASOPHILS ABSOLUTE MAN 0.58 K/mm3 (0.00-0.23); BASOPHILS PERCENT MAN 6 % (0-2); EOSINOPHILS ABSOLUTE MAN 1.35 K/mm3 (0.00-0.68); EOSINOPHILS PERCENT MAN 14 % (0-6); LYMPHOCYTES ABSOLUTE MAN 1.93 K/mm3 (0.84-5.20); LYMPHOCYTES PERCENT MAN 20 % (21-46); METAMYELOCYTE ABSOLUTE MAN 0.09 K/mm3 (0.00-0.00); METAMYELOCYTE PERCENT MAN 1 % (0-0); MONOCYTES ABSOLUTE MAN 0.09 K/mm3 (0.16-1.47); MONOCYTES PERCENT MAN 1 % (4-13); MYELOCYTE ABSOLUTE MAN 0.87 K/mm3 (0.00-0.00); MYELOCYTE PERCENT MAN 9 % (0-0); NEUTROPHILS ABSOLUTE MAN 4.36 K/mm3 (1.96-9.15); OTHER CELL PERCENT MAN 1 % (0-0); PROMYELOCYTE ABSOLUTE MAN 0.29 K/mm3 (0.00-0.00); PROMYELOCYTE PERCENT MAN 3 % (0-0); SEG NEUTROPHILS PERCENT MAN 45 % (41-73); TOTAL CELLS COUNTED 100
[2017-03-21 18:39] LABS: Influenza A Negative (NEGATIVE); Influenza B Negative (NEGATIVE)
[2017-03-21 19:58] LABS: Source, Urine Clean Catch
[2017-03-21 20:02] LABS: Bilirubin, Urine Neg (Neg); Blood, Urine 2+ (Neg); Glucose Qualitative, Urine Neg (Neg); Ketones, Urine Neg (Neg); Leukocyte Esterase, Urine Neg (Neg); Nitrite, Urine Neg (Neg); Protein, Urine Neg (Neg); Urobilinogen, Urine 1+ (Normal)
[2017-03-21 20:14] LABS: Appearance, Urine Clear (Clear); Color, Urine Yellow (P-Yellow)
[2017-03-21 20:15] LABS: Bacteria Not Seen /hpf; Red Blood Cells, Urine Not Seen /hpf (0-2); Squamous Epithelial Cells Few /hpf (Few); White Blood Cells, Urine Not Seen /hpf (0-5)
[2017-03-22 04:04] LABS: Hematocrit 22.4 % (37.0-53.0); Hemoglobin 7.1 g/dL (13.5-17.5); Mean Corpuscular HGB 30.6 pg (26.0-34.0); Mean Corpuscular HGB Conc 31.7 g/dL (31.5-36.5); Mean Corpuscular Volume 97 fL (80-100); NRBC ABSOLUTE 0.06 K/mm3 (0.00-0.02); NRBC Auto 0.7 /100 WBC (0.0-0.2); RDW Coefficient Variation 19.4 % (11.7-14.2); RDW Standard Deviation 67.7 fL (35.1-46.3); Red Blood Cell Count 2.32 M/mm3 (4.30-5.90); White Blood Cell Count 8.55 K/mm3 (4.00-11.30)
[2017-03-22 04:24] LABS: Bun/Creatinine Ratio 45.3 (12.0-20.0); Calcium, Blood 8.3 mg/dL (8.5-10.1); Creatinine, Blood 1.81 mg/dL (0.60-1.20); Potassium, Blood 3.9 mmol/L (3.5-5.5)
[2017-03-22 04:35] LABS: Platelet Count 21 K/mm3 (150-400)
[2017-03-22 04:43] LABS: BAND PERCENT MAN 12 % (0-8); BASOPHILS ABSOLUTE MAN 0.51 K/mm3 (0.00-0.23); BASOPHILS PERCENT MAN 6 % (0-2); EOSINOPHILS ABSOLUTE MAN 1.19 K/mm3 (0.00-0.68); EOSINOPHILS PERCENT MAN 14 % (0-6); LYMPHOCYTES ABSOLUTE MAN 1.45 K/mm3 (0.84-5.20); LYMPHOCYTES PERCENT MAN 17 % (21-46); METAMYELOCYTE ABSOLUTE MAN 0.34 K/mm3 (0.00-0.00); METAMYELOCYTE PERCENT MAN 4 % (0-0); MONOCYTES ABSOLUTE MAN 0.17 K/mm3 (0.16-1.47); MONOCYTES PERCENT MAN 2 % (4-13); MYELOCYTE ABSOLUTE MAN 0.34 K/mm3 (0.00-0.00); MYELOCYTE PERCENT MAN 4 % (0-0); NEUTROPHILS ABSOLUTE MAN 4.53 K/mm3 (1.96-9.15); SEG NEUTROPHILS PERCENT MAN 41 % (41-73); TOTAL CELLS COUNTED 100
[2017-03-22] MEDS ORDERED: POTCHL10ER PO (05:51)
[2017-03-22] MEDS ORDERED: PANT40 PO (05:51)
[2017-03-22] MEDS ORDERED: Hair, Skin & N1 EACH PO (05:52)
[2017-03-22] MEDS ORDERED: TAMS.4ER PO (05:53)
[2017-03-22] MEDS ORDERED: EXEN5PENI SC (05:54)
[2017-03-22 14:01] LABS: PCO2 Arterial 57.4 mmHg (35-45); PO2 Arterial 73.9 mmHg (80-100); pH Blood Arterial 7.43 (7.35-7.45)
[2017-03-23 04:20] LABS: Hematocrit 23.2 % (37.0-53.0); Hemoglobin 7.3 g/dL (13.5-17.5); Mean Corpuscular HGB 30.3 pg (26.0-34.0); Mean Corpuscular HGB Conc 31.5 g/dL (31.5-36.5); Mean Corpuscular Volume 96 fL (80-100); NRBC ABSOLUTE 0.07 K/mm3 (0.00-0.02); NRBC Auto 0.8 /100 WBC (0.0-0.2); RDW Coefficient Variation 19.4 % (11.7-14.2); RDW Standard Deviation 67.1 fL (35.1-46.3); Red Blood Cell Count 2.41 M/mm3 (4.30-5.90); White Blood Cell Count 8.42 K/mm3 (4.00-11.30)
[2017-03-23 04:25] LABS: Platelet Count 16 K/mm3 (150-400)
[2017-03-23 04:35] LABS: Albumin, Blood 1.8 g/dL (3.4-5.0); Anion Gap 6 mmol/L (6-16); Blood Urea Nitrogen 77 mg/dL (8-24); Bun/Creatinine Ratio 44.8 (12.0-20.0); CO2, Blood 36 mmol/L (21-32); Calcium, Blood 8.4 mg/dL (8.5-10.1); Chloride, Blood 96 mmol/L (98-108); Creatinine, Blood 1.72 mg/dL (0.60-1.20); Glomerular Filtration Rate 41 (60-); Glucose, Blood 226 mg/dL (70-99); Phosphorus, Blood 3.5 mg/dL (2.5-4.9); Potassium, Blood 3.8 mmol/L (3.5-5.5); Sodium, Blood 138 mmol/L (136-145)
[2017-03-23 05:13] LABS: PCO2 Arterial 55.4 mmHg (35-45); PO2 Arterial 83.4 mmHg (80-100); pH Blood Arterial 7.44 (7.35-7.45)
[2017-03-23 05:37] LABS: BAND PERCENT MAN 12 % (0-8); BASOPHILS ABSOLUTE MAN 0.25 K/mm3 (0.00-0.23); BASOPHILS PERCENT MAN 3 % (0-2); EOSINOPHILS ABSOLUTE MAN 1.43 K/mm3 (0.00-0.68); EOSINOPHILS PERCENT MAN 17 % (0-6); LYMPHOCYTES % ATYPICAL MANUAL 4 % (0-0); LYMPHOCYTES ABSOLUTE MAN 1.34 K/mm3 (0.84-5.20); LYMPHOCYTES PERCENT MAN 12 % (21-46); METAMYELOCYTE ABSOLUTE MAN 0.33 K/mm3 (0.00-0.00); METAMYELOCYTE PERCENT MAN 4 % (0-0); MONOCYTES ABSOLUTE MAN 0.08 K/mm3 (0.16-1.47); MONOCYTES PERCENT MAN 1 % (4-13); MYELOCYTE ABSOLUTE MAN 0.16 K/mm3 (0.00-0.00); MYELOCYTE PERCENT MAN 2 % (0-0); NEUTROPHILS ABSOLUTE MAN 4.46 K/mm3 (1.96-9.15); PROMYELOCYTE ABSOLUTE MAN 0.33 K/mm3 (0.00-0.00); PROMYELOCYTE PERCENT MAN 4 % (0-0); SEG NEUTROPHILS PERCENT MAN 41 % (41-73); TOTAL CELLS COUNTED 100
[2017-03-24 03:57] LABS: Hematocrit 22.1 % (37.0-53.0); Hemoglobin 7.1 g/dL (13.5-17.5); Mean Corpuscular HGB 30.6 pg (26.0-34.0); Mean Corpuscular HGB Conc 32.1 g/dL (31.5-36.5); Mean Corpuscular Volume 95 fL (80-100); NRBC ABSOLUTE 0.05 K/mm3 (0.00-0.02); NRBC Auto 0.6 /100 WBC (0.0-0.2); RDW Coefficient Variation 18.5 % (11.7-14.2); RDW Standard Deviation 63.7 fL (35.1-46.3); Red Blood Cell Count 2.32 M/mm3 (4.30-5.90); White Blood Cell Count 8.67 K/mm3 (4.00-11.30)
[2017-03-24 04:01] LABS: Platelet Count 16 K/mm3 (150-400)
[2017-03-24 04:13] LABS: Bun/Creatinine Ratio 40.8 (12.0-20.0); Calcium, Blood 8.6 mg/dL (8.5-10.1); Creatinine, Blood 1.96 mg/dL (0.60-1.20); Potassium, Blood 4.1 mmol/L (3.5-5.5)
[2017-03-24 04:41] LABS: BAND PERCENT MAN 12 % (0-8); BASOPHILS ABSOLUTE MAN 0.34 K/mm3 (0.00-0.23); BASOPHILS PERCENT MAN 4 % (0-2); EOSINOPHILS ABSOLUTE MAN 1.56 K/mm3 (0.00-0.68); EOSINOPHILS PERCENT MAN 18 % (0-6); LYMPHOCYTES ABSOLUTE MAN 1.12 K/mm3 (0.84-5.20); LYMPHOCYTES PERCENT MAN 13 % (21-46); METAMYELOCYTE ABSOLUTE MAN 0.26 K/mm3 (0.00-0.00); METAMYELOCYTE PERCENT MAN 3 % (0-0); MONOCYTES PERCENT MAN 0 % (4-13); MYELOCYTE ABSOLUTE MAN 0.52 K/mm3 (0.00-0.00); MYELOCYTE PERCENT MAN 6 % (0-0); NEUTROPHILS ABSOLUTE MAN 4.59 K/mm3 (1.96-9.15); PROMYELOCYTE ABSOLUTE MAN 0.26 K/mm3 (0.00-0.00); PROMYELOCYTE PERCENT MAN 3 % (0-0); SEG NEUTROPHILS PERCENT MAN 41 % (41-73); TOTAL CELLS COUNTED 100
[2017-03-25 05:17] LABS: Hematocrit 23.9 % (37.0-53.0); Hemoglobin 7.5 g/dL (13.5-17.5); Mean Corpuscular HGB 30.1 pg (26.0-34.0); Mean Corpuscular HGB Conc 31.4 g/dL (31.5-36.5); Mean Corpuscular Volume 96 fL (80-100); NRBC ABSOLUTE 0.03 K/mm3 (0.00-0.02); NRBC Auto 0.4 /100 WBC (0.0-0.2); RDW Coefficient Variation 18.2 % (11.7-14.2); RDW Standard Deviation 62.8 fL (35.1-46.3); Red Blood Cell Count 2.49 M/mm3 (4.30-5.90); White Blood Cell Count 8.06 K/mm3 (4.00-11.30)
[2017-03-25 05:21] LABS: Platelet Count 14 K/mm3 (150-400)
[2017-03-25 05:51] LABS: BAND PERCENT MAN 13 % (0-8); BASOPHILS PERCENT MAN 5 % (0-2); EOSINOPHILS ABSOLUTE MAN 1.28 K/mm3 (0.00-0.68); EOSINOPHILS PERCENT MAN 16 % (0-6); LYMPHOCYTES % ATYPICAL MANUAL 1 % (0-0); LYMPHOCYTES ABSOLUTE MAN 1.12 K/mm3 (0.84-5.20); LYMPHOCYTES PERCENT MAN 13 % (21-46); METAMYELOCYTE ABSOLUTE MAN 0.24 K/mm3 (0.00-0.00); METAMYELOCYTE PERCENT MAN 3 % (0-0); MONOCYTES ABSOLUTE MAN 0.08 K/mm3 (0.16-1.47); MONOCYTES PERCENT MAN 1 % (4-13); MYELOCYTE ABSOLUTE MAN 0.64 K/mm3 (0.00-0.00); MYELOCYTE PERCENT MAN 8 % (0-0); NEUTROPHILS ABSOLUTE MAN 4.03 K/mm3 (1.96-9.15); OTHER CELL PERCENT MAN 3 % (0-0); SEG NEUTROPHILS PERCENT MAN 37 % (41-73); TOTAL CELLS COUNTED 100
[2017-03-25 06:02] LABS: Bun/Creatinine Ratio 45.7 (12.0-20.0); Calcium, Blood 9.1 mg/dL (8.5-10.1); Creatinine, Blood 1.73 mg/dL (0.60-1.20); Potassium, Blood 4.1 mmol/L (3.5-5.5)
[2017-03-25 18:21] LABS: PCO2 Arterial 57.1 mmHg (35-45); PO2 Arterial 116 mmHg (80-100); pH Blood Arterial 7.41 (7.35-7.45)
[2017-03-26 04:31] LABS: Hematocrit 22.7 % (37.0-53.0)
[2017-03-26 04:58] LABS: Albumin, Blood 1.9 g/dL (3.4-5.0); Anion Gap 6 mmol/L (6-16); Blood Urea Nitrogen 81 mg/dL (8-24); Bun/Creatinine Ratio 46.3 (12.0-20.0); CO2, Blood 37 mmol/L (21-32); Calcium, Blood 8.8 mg/dL (8.5-10.1); Chloride, Blood 98 mmol/L (98-108); Creatinine, Blood 1.75 mg/dL (0.60-1.20); Glomerular Filtration Rate 41 (60-); Glucose, Blood 240 mg/dL (70-99); Magnesium, Blood 2.1 mg/dL (1.6-2.4); Phosphorus, Blood 3.2 mg/dL (2.5-4.9); Potassium, Blood 3.5 mmol/L (3.5-5.5); Sodium, Blood 141 mmol/L (136-145)
[2017-03-26 06:19] LABS: Mean Corpuscular Volume 97 fL (80-100); NRBC ABSOLUTE 0.03 K/mm3 (0.00-0.02); NRBC Auto 0.4 /100 WBC (0.0-0.2); RDW Coefficient Variation 18.2 % (11.7-14.2); RDW Standard Deviation 64.2 fL (35.1-46.3); Red Blood Cell Count 2.33 M/mm3 (4.30-5.90)
[2017-03-26 06:22] LABS: Platelet Count 31 K/mm3 (150-400)
[2017-03-26 06:55] LABS: BAND PERCENT MAN 8 % (0-8); BASOPHILS ABSOLUTE MAN 0.22 K/mm3 (0.00-0.23); BASOPHILS PERCENT MAN 3 % (0-2); EOSINOPHILS ABSOLUTE MAN 1.27 K/mm3 (0.00-0.68); EOSINOPHILS PERCENT MAN 17 % (0-6); LYMPHOCYTES ABSOLUTE MAN 1.87 K/mm3 (0.84-5.20); LYMPHOCYTES PERCENT MAN 25 % (21-46); METAMYELOCYTE ABSOLUTE MAN 0.37 K/mm3 (0.00-0.00); METAMYELOCYTE PERCENT MAN 5 % (0-0); MONOCYTES ABSOLUTE MAN 0.37 K/mm3 (0.16-1.47); MONOCYTES PERCENT MAN 5 % (4-13); NEUTROPHILS ABSOLUTE MAN 3.37 K/mm3 (1.96-9.15); SEG NEUTROPHILS PERCENT MAN 37 % (41-73); TOTAL CELLS COUNTED 100
[2017-03-26 13:15] LABS: Percent Saturation 44.9 % (20.0-50.0)
[2017-03-27 04:05] LABS: Hematocrit 23.8 % (37.0-53.0); Hemoglobin 7.4 g/dL (13.5-17.5)
[2017-03-27 04:23] LABS: Albumin, Blood 1.8 g/dL (3.4-5.0); Anion Gap 8 mmol/L (6-16); Blood Urea Nitrogen 88 mg/dL (8-24); CO2, Blood 35 mmol/L (21-32); Calcium, Blood 8.6 mg/dL (8.5-10.1); Chloride, Blood 97 mmol/L (98-108); Creatinine, Blood 1.76 mg/dL (0.60-1.20); Glomerular Filtration Rate 40 (60-); Glucose, Blood 329 mg/dL (70-99); Magnesium, Blood 1.9 mg/dL (1.6-2.4); Phosphorus, Blood 2.9 mg/dL (2.5-4.9); Potassium, Blood 3.8 mmol/L (3.5-5.5); Sodium, Blood 140 mmol/L (136-145)
[2017-03-27 08:25] LABS: Platelet Count 22 K/mm3 (150-400)
[2017-03-28 05:01] LABS: Hematocrit 23.5 % (37.0-53.0); Hemoglobin 7.3 g/dL (13.5-17.5); Mean Corpuscular HGB 29.3 pg (26.0-34.0); Mean Corpuscular HGB Conc 31.1 g/dL (31.5-36.5); NRBC ABSOLUTE 0.03 K/mm3 (0.00-0.02); NRBC Auto 0.5 /100 WBC (0.0-0.2); RDW Coefficient Variation 19.2 % (11.7-14.2); RDW Standard Deviation 66.1 fL (35.1-46.3); Red Blood Cell Count 2.49 M/mm3 (4.30-5.90)
[2017-03-28 05:07] LABS: Mean Corpuscular Volume 94 fL (80-100); Mean Platelet Volume 11.1 fL (9.1-12.4)
[2017-03-28 05:08] LABS: Platelet Count 42 K/mm3 (150-400)
[2017-03-28 05:26] LABS: BAND PERCENT MAN 9 % (0-8); BASOPHILS ABSOLUTE MAN 0.26 K/mm3 (0.00-0.23); BASOPHILS PERCENT MAN 4 % (0-2); BLASTS PERCENT MAN 1 % (0-0); EOSINOPHILS ABSOLUTE MAN 1.32 K/mm3 (0.00-0.68); EOSINOPHILS PERCENT MAN 20 % (0-6); LYMPHOCYTES ABSOLUTE MAN 1.12 K/mm3 (0.84-5.20); LYMPHOCYTES PERCENT MAN 17 % (21-46); METAMYELOCYTE ABSOLUTE MAN 0.66 K/mm3 (0.00-0.00); METAMYELOCYTE PERCENT MAN 10 % (0-0); MONOCYTES ABSOLUTE MAN 0.13 K/mm3 (0.16-1.47); MONOCYTES PERCENT MAN 2 % (4-13); MYELOCYTE ABSOLUTE MAN 0.46 K/mm3 (0.00-0.00); MYELOCYTE PERCENT MAN 7 % (0-0); NEUTROPHILS ABSOLUTE MAN 2.44 K/mm3 (1.96-9.15); PROMYELOCYTE ABSOLUTE MAN 0.13 K/mm3 (0.00-0.00); PROMYELOCYTE PERCENT MAN 2 % (0-0); SEG NEUTROPHILS PERCENT MAN 28 % (41-73); TOTAL CELLS COUNTED 100
[2017-03-28 05:35] LABS: Albumin, Blood 1.8 g/dL (3.4-5.0); Anion Gap 10 mmol/L (6-16); Blood Urea Nitrogen 87 mg/dL (8-24); Bun/Creatinine Ratio 54.7 (12.0-20.0); CO2, Blood 34 mmol/L (21-32); Calcium, Blood 8.8 mg/dL (8.5-10.1); Chloride, Blood 98 mmol/L (98-108); Creatinine, Blood 1.59 mg/dL (0.60-1.20); Glomerular Filtration Rate 45 (60-); Glucose, Blood 305 mg/dL (70-99); Magnesium, Blood 1.8 mg/dL (1.6-2.4); Phosphorus, Blood 2.8 mg/dL (2.5-4.9); Potassium, Blood 3.8 mmol/L (3.5-5.5); Sodium, Blood 142 mmol/L (136-145)
[2017-03-29 06:42] LABS: Hematocrit 17.6 % (37.0-53.0); Hemoglobin 5.4 g/dL (13.5-17.5)
[2017-03-29 06:52] LABS: Albumin, Blood 1.8 g/dL (3.4-5.0); Anion Gap 6 mmol/L (6-16); Blood Urea Nitrogen 86 mg/dL (8-24); Bun/Creatinine Ratio 58.5 (12.0-20.0); CO2, Blood 38 mmol/L (21-32); Calcium, Blood 9.1 mg/dL (8.5-10.1); Chloride, Blood 101 mmol/L (98-108); Creatinine, Blood 1.47 mg/dL (0.60-1.20); Glomerular Filtration Rate 50 (60-); Glucose, Blood 272 mg/dL (70-99); Magnesium, Blood 1.7 mg/dL (1.6-2.4); Phosphorus, Blood 2.2 mg/dL (2.5-4.9); Potassium, Blood 3.6 mmol/L (3.5-5.5); Sodium, Blood 145 mmol/L (136-145)
[2017-03-30 03:02] LABS: Hematocrit 31.8 % (37.0-53.0); Hemoglobin 9.7 g/dL (13.5-17.5)
[2017-03-30 03:15] LABS: Albumin, Blood 1.9 g/dL (3.4-5.0); Anion Gap 9 mmol/L (6-16); Blood Urea Nitrogen 76 mg/dL (8-24); Bun/Creatinine Ratio 56.7 (12.0-20.0); CO2, Blood 38 mmol/L (21-32); Calcium, Blood 9.1 mg/dL (8.5-10.1); Chloride, Blood 102 mmol/L (98-108); Creatinine, Blood 1.34 mg/dL (0.60-1.20); Glomerular Filtration Rate 55 (60-); Glucose, Blood 263 mg/dL (70-99); Magnesium, Blood 1.4 mg/dL (1.6-2.4); Phosphorus, Blood 2.9 mg/dL (2.5-4.9); Potassium, Blood 3.5 mmol/L (3.5-5.5); Sodium, Blood 149 mmol/L (136-145)
[2017-03-30 07:52] LABS: Mean Corpuscular HGB 29.7 pg (26.0-34.0); Mean Corpuscular HGB Conc 30.5 g/dL (31.5-36.5); Red Blood Cell Count 3.27 M/mm3 (4.30-5.90); White Blood Cell Count 6.14 K/mm3 (4.00-11.30)
[2017-03-30 07:53] LABS: Mean Corpuscular Volume 97 fL (80-100)
[2017-03-30 07:56] LABS: Platelet Count 21 K/mm3 (150-400)
[2017-03-30 08:23] LABS: BAND PERCENT MAN 14 % (0-8); BASOPHILS ABSOLUTE MAN 0.06 K/mm3 (0.00-0.23); BASOPHILS PERCENT MAN 1 % (0-2); EOSINOPHILS ABSOLUTE MAN 2.02 K/mm3 (0.00-0.68); EOSINOPHILS PERCENT MAN 33 % (0-6); LYMPHOCYTES ABSOLUTE MAN 0.61 K/mm3 (0.84-5.20); LYMPHOCYTES PERCENT MAN 10 % (21-46); METAMYELOCYTE ABSOLUTE MAN 0.12 K/mm3 (0.00-0.00); METAMYELOCYTE PERCENT MAN 2 % (0-0); MONOCYTES ABSOLUTE MAN 0.12 K/mm3 (0.16-1.47); MONOCYTES PERCENT MAN 2 % (4-13); MYELOCYTE ABSOLUTE MAN 0.18 K/mm3 (0.00-0.00); MYELOCYTE PERCENT MAN 3 % (0-0); NEUTROPHILS ABSOLUTE MAN 2.94 K/mm3 (1.96-9.15); PROMYELOCYTE ABSOLUTE MAN 0.06 K/mm3 (0.00-0.00); PROMYELOCYTE PERCENT MAN 1 % (0-0); SEG NEUTROPHILS PERCENT MAN 34 % (41-73); TOTAL CELLS COUNTED 100
== END 2017-04-01 08:26 | DRG 291 ==
LOC: ER 17:20 → ICUW 17:57 → ICUE 17:57 → PCU 17:57 → MEDS 17:57 → ICUE 19:07 → PCU 03-24 15:03 → MEDS 03-30 10:25
PROVIDERS: Emergency Medicine; Internal Medicine; Internal Medicine Critical Care Medicine; Internal Medicine Nephrology
PROC: 02HV33Z Insertion of Infusion Device into Superior Vena Cava, Percutaneous Approach (ICD-10-PCS; principal; 2017-03-28)
DX: I13.0 Hypertensive heart and chronic kidney disease with heart failure and stage 1 through stage 4 chronic kidney disease, or unspecified chronic kidney disease (principal); I50.33 Acute on chronic diastolic (congestive) heart failure; J96.21 Acute and chronic respiratory failure with hypoxia; G93.41 Metabolic encephalopathy; N17.9 Acute kidney failure, unspecified; Z51.5 Encounter for palliative care; D69.6 Thrombocytopenia, unspecified; E11.22 Type 2 diabetes mellitus with diabetic chronic kidney disease; E11.40 Type 2 diabetes mellitus with diabetic neuropathy, unspecified; N18.3 Chronic kidney disease, stage 3 (moderate); E66.01 Morbid (severe) obesity due to excess calories; I48.91 Unspecified atrial fibrillation; J44.9 Chronic obstructive pulmonary disease, unspecified; Z99.81 Dependence on supplemental oxygen; Z66 Do not resuscitate
CPT/HCPCS: 36415; 36430; 36569; 36600; 51702; 70450; 71045; 71046; 80047; 80048; 80053; 80069; 81001; 82375; 82607; 82728; 82746; 82803; 82947; 83540; 83550; 83605; 83735; 83880; 84484; 85007; 85014; 85018; 85025; 85027; 85049; 86850; 86900; 86901; 86923; 87040; 87070; 87077; 87147; 87186; 87205; 87804; 92610; 93005; 93010; 94640; 94660; 94760; 94762; 96374; 97162; 99285; C1751; C1769; C1894; C9113; G8978; G8979; G8980; G8996; G8997; J0690; J0881; J1170; J1450; J1815; J1817; J1940; J1956; J2060; J2270; J7030; J7050; P9016; P9035